=== PATIENT | male | born 1955 | race Caucasian/White ===

== ENCOUNTER 2021-05-13 08:18 | Day surgery (SDC) | payer MEDICARE ==
[~2021-05-13] VITALS: Ht 185 cm; Wt 124.0 kg
[~2021-05-13 08:18] MED LIST: ASPIRIN81 MG PO; DICLOFENAC SOD2.5 ML TOP; FINASTERIDE5 MG PO; FLOMAX0.4 MG PO; GABAPENTIN600 MG PO; METFORMIN HCL500 MG PO; PRINIVIL10 MG PO; SIMVASTATIN80 MG PO; TENORMIN50 MG PO; VENTOLIN HFA IN18 GM INH; VIAGRA100 MG PO
[2021-05-14 06:55] LABS: BASOPHIL 0.3 % (0-2); EOSINOPHIL 1.1 % (0-7); HCT 35.4 % (42.0-52.0); HGB 11.4 g/dl (13.2-18.0); LYMPHOCYTE 24.5 % (15-48); MCH 31.5 pg (25.0-31.0); MCHC 32.2 g/dL (32.0-36.0); MCV 97.8 fL (78.0-100.0); MONOCYTE 11.2 % (0-12); MPV 9.5 fL (6.0-9.5); NEUTROPHIL 62.6 % (41-80); NRBC 0; PLT 127 K/uL (150-400); RBC 3.62 M/uL (4.70-6.00); RDW 12.8 % (11.5-14.0); WBC 7.8 K/uL (4.0-10.5)
[2021-05-14 07:13] LABS: BUN/CREAT RATIO (CALC) 21.5 RATIO; CREATININE 0.65 mg/dL (0.67-1.17); POTASSIUM 4.5 mmol/L (3.5-5.1)
[2021-05-14] MEDS ORDERED: ULTRA-LIGHT RO1 EACH XX (09:48)
[2021-05-14] MEDS ORDERED: XARELTO10 MG PO (09:48)
[2021-05-14] MEDS ORDERED: FEOSOL325 MG PO (09:48)
[2021-05-14] MEDS ORDERED: OXYCODONE-ACET1 EAC1 PO (09:52)
--- NOTE | 2021-05-14 13:49 | NUR ---
PT. D/C HOME THIS DATE WITH SPOUSE. PT. IS A L DIRECT ANTERIOR TOTAL HIP REPLACEMENT. CALLED THE NURSE AT HIS PRIMARY CARE DR. OFFICE TO REQUEST RW AND HH SPOKE WITH LAURE ALAS FOR DR. FLOYD. PT. PCP AT THE [facility] [address] SHE ADVISED TO FAX THE CLINICAL INFORMATION TO DR. FLOYD AND HE WOULD ORDER THE RW AND HH., SPOKE WITH PT . SHE HAS TO GO TO [place] THIS DATE AND WILL BRINE [employer] [facility] AT [facility].
--- NOTE | 2021-05-15 11:08 | NUR ---
RECEIVED A TELEPHONE CALL FROM ANA[facility] WITH [facility]. SHE ADVISED THAT THEIR SYSTEM IS DOWN AND SHE CANNOT SEND THE CLINICAL INFORMATION TO [facility] FOR PT. THERAPY. SHE REQUESTED THAT I FAX THE CLNICALS TO LEAH AT [facility] AT [phone]. CLINICALS FAXED.
== END 2021-05-14 11:17 | disposition home or self-care (01) ==
LOC: FAS 08:18
PROVIDERS: Legal Medicine
DX: M16.12 Unilateral primary osteoarthritis, left hip (principal); E11.9 Type 2 diabetes mellitus without complications; I10 Essential (primary) hypertension; E78.5 Hyperlipidemia, unspecified; Z79.899 Other long term (current) drug therapy
CPT/HCPCS: 36415; 73501; 76000; 80048; 85025; 86850; 86900; 86901; 94010; 97110; 97116; 97161; 97165; 97535; C1713; C1776; J0171; J0697; J1170; J1885; J2250; J2270; J2370; J2405; J2704; J2795; J3010; J7120

== ENCOUNTER 2021-06-23 17:02 | Emergency (ER) | payer OTHER ==
[~2021-06-23 17:02] MED LIST changes: +FEOSOL325 MG PO; +OXYCODONE-ACET1 EAC1 PO; +ULTRA-LIGHT RO1 EACH XX; +XARELTO10 MG PO
== END 2021-06-23 18:47 | disposition home or self-care (01) ==
LOC: FER 17:02
DX: Z48.02 Encounter for removal of sutures (principal); I10 Essential (primary) hypertension; E11.9 Type 2 diabetes mellitus without complications; Z79.899 Other long term (current) drug therapy
CPT/HCPCS: 99281